=== PATIENT | female | born 1980 | race Caucasian/White ===

== ENCOUNTER 2016-02-26 16:21 | Emergency (ER) | payer OTHER ==
[~2016-02-26] VITALS: Ht 160 cm; Wt 85.5 kg
[~2016-02-26 16:21] MED LIST: AMOXIL875 MG PO; ATARAX,VISTARIL50 MG PO; BACTRIM,SEPT1 TABLET PO; BENTYL10 MG PO; BENZONATATE100 MG PO; BIRTH CONTROL PILLS; BUSPAR10 MG PO; COLACE100 MG PO; COMPAZINE10 MG PR; CYMBALTA20 MG PO; CYMBALTA30 MG PO; DICYCLOMINE HCL20 MG PO; DILAUDID1 MG/ML PO; DOCUSATE SODIU100 MG PO; ENDOCET 5-3251 EACH PO; ESTRACE0.5 MG PO; FLONASE16 G1 NS; Flexeril PO; HYDROXYZINE HCL50 M1 PO; HYDROXYZINE PAM25 MG PO; IBUPROFEN800 MG PO; LAMICTAL100 MG PO; LAMICTAL200 MG PO; LAMOTRIGINE100 MG PO; LEVSIN0.125 MG PO; MAGNESIUM OXID500 MG PO; MONTELUKAST SOD10 MG PO; NAPROSYN500 MG PO; NORCO 5/3251 TABLET PO; Naprosyn PO; PERCOCET 5/31 TABLET PO; PHENERGAN25 MG PR; PREDNISONE20 MG PO; PROAIR HFA8.5 GM IH; PROMETHAZINE HC25 M1 PO; PROZAC20 M1 PO; QUETIAPINE FUMA25 MG PO; TOPAMAX25 MG PO; TOPAMAX50 MG PO; TOPIRAMATE25 MG PO; TORADOL10 MG PO; TRAMADOL HCL50 MG PO; TRAZODONE HCL50 MG PO; TYLENOL WITH C1 EACH PO; XULANE PATCH1 EACH TD; ZANTAC150 MG PO; ZOFRAN ODT4 MG PO; ZOFRAN ODT8 MG PO; ZOFRAN8 MG PO; ZOLOFT100 M1 PO; ZOLOFT100 MG PO
[2016-02-26] MEDS ORDERED: VALIUM5 MG PO (21:02)
[2016-02-26 21:30] VITALS: BP 128/62
== END 2016-02-26 21:32 | disposition home or self-care (01) ==
LOC: EME 16:21
DX: M54.2 Cervicalgia (principal); G89.29 Other chronic pain; M62.838 Other muscle spasm; Z90.710 Acquired absence of both cervix and uterus; Z79.890 Hormone replacement therapy; F17.200 Nicotine dependence, unspecified, uncomplicated
CPT/HCPCS: 99281; 99283; J1170

== ENCOUNTER 2016-03-05 15:20 | Inpatient (IN) | payer OTHER ==
[~2016-03-05] VITALS: Ht 160 cm; Wt 83.5 kg
[~2016-03-05 15:20] MED LIST changes: +VALIUM5 MG PO
[2016-03-05] MEDS ORDERED: ROBAXIN500 MG PO (16:05)
[2016-03-05] MEDS ORDERED: VICODIN 5-3001 EACH PO (16:06)
[2016-03-05] MEDS ORDERED: ONDANSETRON ODT8 MG PO (16:07)
[2016-03-05] MEDS ORDERED: OXYCODONE HCL10 MG PO (16:07)
[2016-03-05 16:53] LABS: HEMATOCRIT 41.9 % (36.0-46.0); MCH 30.5 PG (29.0-34.0); MCHC 34.4 G/DL (30.0-36.0); MCV 88.8 FL (83-99); MEAN PLAT.VOLUME 9.4 uM^3 (9.5-12.4); PLATELET COUNT 253 K/uL (156-360); RBC DIS.WIDTH-CV 12.9 % (11.8-14.6); RBC DIS.WIDTH-SD 41.1 % (39-53); RED BLOOD COUNT 4.72 M/uL (3.80-5.20); WHITE BLOOD COUNT 7.3 K/uL (4.1-10.2)
[2016-03-05 17:05] LABS: CHLORIDE 107 mEq/L (99-109); POTASSIUM 4.1 mEq/L (3.7-5.4); SODIUM 142 mEq/L (136-147)
[2016-03-05 17:07] LABS: GLUCOSE 95 mg/dL (70-99)
[2016-03-05 17:08] LABS: ANION GAP 12 MEQ/L (2-14)
[2016-03-05 17:10] LABS: SERUM ETHYL ALCOHOL < 10 mg/dL
[2016-03-05 17:11] LABS: GFR ESTIMATE (CALCULATED) > 59 mL/min/
[2016-03-05 17:12] LABS: UREA NITROGEN (BUN) 9 mg/dL (9-23)
[2016-03-05 17:40] LABS: QUANTITATIVE HCG < 4.0 MIU/ML
[2016-03-05] MEDS ORDERED: NORCO 5/3251 TABLET PO (18:37)
[2016-03-05] MEDS ORDERED: MULTI VITAMIN1 EACH PO (18:38)
[2016-03-05] MEDS ORDERED: VITAMIN D2000 UNIT PO (18:38)
[2016-03-05] MEDS ORDERED: RANITIDINE HCL300 MG PO (18:39)
[2016-03-05] MEDS ORDERED: MS CONTIN,ORAMO15 M1 PO (18:40)
[2016-03-05 19:29] VITALS: BP 118/71
[2016-03-05 19:35] LABS: AMPHETAMINE NEGATIVE (500 ng/mL); BARBITURATES NEGATIVE (200 ng/mL); BENZODIAZEPINES PRESUMPTIVE POSITIVE (150 ng/mL); COCAINE NEGATIVE (150 ng/mL); INTERNAL CONTROLS VALID? YES; METHADONE NEGATIVE (200 ng/mL); METHAMPHETAMINE NEGATIVE (500 ng/mL); OPIATES (MORPHINE) PRESUMPTIVE POSITIVE (100 ng/mL); OXYCODONE NEGATIVE (100 ng/mL); PHENCYCLIDINE NEGATIVE (25 ng/mL); PROPOXYPHENE NEGATIVE (300 ng/mL); THC CANNABINOIDS NEGATIVE (50 ng/mL); TRICYCLIC ANTIDEPRESSANTS NEGATIVE (300 ng/mL)
[2016-03-05 19:36] LABS: ADD MEDTOX COMMENT Y
[2016-03-05 20:22] LABS: BENZODIAZEPINES, URINE SCREEN POSITIVE (200 ng/mL)
[2016-03-06 07:55] VITALS: BP 101/55
[2016-03-06 15:36] VITALS: BP 124/73
[2016-03-07 07:33] VITALS: BP 107/59
[2016-03-07 15:57] VITALS: BP 123/79
[2016-03-08 07:41] VITALS: BP 84/52
[2016-03-08 16:06] VITALS: BP 135/79
[2016-03-09 07:53] VITALS: BP 103/56
[2016-03-09] MEDS ORDERED: DULOXETINE HCL30 MG PO (09:36)
[2016-03-09] MEDS ORDERED: TOPIRAMATE25 MG PO (09:36)
== END 2016-03-09 14:45 | disposition home or self-care (01) | DRG 885 ==
LOC: EME 15:20 → 1WEST 18:01 → EDOF 18:01 → 1WEST 18:01 → EDOF 18:01 → 1WEST 19:27
DX: F33.9 Major depressive disorder, recurrent, unspecified (principal); F60.9 Personality disorder, unspecified; R45.851 Suicidal ideations; G89.4 Chronic pain syndrome; G47.10 Hypersomnia, unspecified; F41.9 Anxiety disorder, unspecified; K58.9 Irritable bowel syndrome, unspecified; G43.909 Migraine, unspecified, not intractable, without status migrainosus; E66.3 Overweight; Z68.33 Body mass index [BMI] 33.0-33.9, adult
CPT/HCPCS: 80048; 81003; 84702; 84999; 85027; 90839; 97150 GO; 97167 GO; 99281; 99285; G0480

== ENCOUNTER 2016-05-15 22:03 | Observation (INO) | payer OTHER ==
[~2016-05-15] VITALS: Ht 160 cm; Wt 85.4 kg
[~2016-05-15 22:03] MED LIST changes: +DULOXETINE HCL30 MG PO; +MS CONTIN,ORAMO15 M1 PO; +MULTI VITAMIN1 EACH PO; +ONDANSETRON ODT8 MG PO; +OXYCODONE HCL10 MG PO; +RANITIDINE HCL300 MG PO; +ROBAXIN500 MG PO; +VICODIN 5-3001 EACH PO; +VITAMIN D2000 UNIT PO
[2016-05-15 23:35] LABS: HEMATOCRIT 40.7 % (36.0-46.0); MCHC 33.9 G/DL (30.0-36.0); MCV 88.5 FL (83-99); MEAN PLAT.VOLUME 9.3 uM^3 (9.5-12.4); PLATELET COUNT 251 K/uL (156-360); RBC DIS.WIDTH-CV 11.9 % (11.8-14.6); RBC DIS.WIDTH-SD 38.7 % (39-53); WHITE BLOOD COUNT 6.5 K/uL (4.1-10.2)
[2016-05-15 23:48] LABS: CHLORIDE 110 mEq/L (99-109); POTASSIUM 3.9 mEq/L (3.7-5.4); SODIUM 142 mEq/L (136-147)
[2016-05-15 23:51] LABS: GLUCOSE 88 mg/dL (70-99)
[2016-05-15 23:52] LABS: ANION GAP 11 MEQ/L (2-14)
[2016-05-15 23:53] LABS: TOTAL BILIRUBIN 0.3 mg/dL (0.0-1.0)
[2016-05-15 23:54] LABS: ALKALINE PHOSPHATASE 75 IU/L (3-129); GFR ESTIMATE (CALCULATED) > 59 mL/min/; SERUM ETHYL ALCOHOL < 10 mg/dL; TROP-I INTERPRETATION NEGATIVE; TROPONIN-I < 0.01 ng/mL (0.0-0.30)
[2016-05-15 23:56] LABS: UREA NITROGEN (BUN) 7 mg/dL (9-23)
[2016-05-15 23:58] LABS: CREATINE KINASE 51 IU/L (1-294); LIPASE 21 U/L (1.0-51.0); TOTAL CK 51 IU/L (1-294)
[2016-05-16 00:05] LABS: CK-MB 0.6 ng/mL (0.0-4.9); QUANTITATIVE HCG < 4.0 MIU/ML
[2016-05-16] MEDS ORDERED: TOPAMAX100 MG PO (01:01)
[2016-05-16] MEDS ORDERED: FLONASE SENSIM9.9 ML BOTH NARES (01:01)
[2016-05-16] MEDS ORDERED: OXYCODONE HCL10 MG PO (01:02)
[2016-05-16] MEDS ORDERED: MORPHINE SULFAT15 M1 PO (01:02)
[2016-05-16] MEDS ORDERED: CYMBALTA60 MG PO (01:02)
[2016-05-16 01:06] LABS: ADD MIUA? NO; BILIRUBIN NEGATIVE; BLOOD NEGATIVE; COLOR STRAW ((YELLOW)); GLUCOSE (STRIP) NEGATIVE; KETONES NEGATIVE; LEUKOCYTES NEGATIVE; NITRITE NEGATIVE; PROTEIN (STRIP) NEGATIVE; SPECIFIC GRAVITY 1.005 (1.000-1.030); UCUL ADDED? NO; UROBILINOGEN 0.2 MG/DL (0.2-1.0)
[2016-05-16] MEDS ORDERED: [UNRECOGNIZED DRUG - OTHER] PO (01:06)
[2016-05-16 01:14] LABS: AMPHETAMINE NEGATIVE (500 ng/mL); BARBITURATES NEGATIVE (200 ng/mL); BENZODIAZEPINES NEGATIVE (150 ng/mL); COCAINE NEGATIVE (150 ng/mL); INTERNAL CONTROLS VALID? YES; METHADONE NEGATIVE (200 ng/mL); METHAMPHETAMINE NEGATIVE (500 ng/mL); OPIATES (MORPHINE) PRESUMPTIVE POSITIVE (100 ng/mL); OXYCODONE NEGATIVE (100 ng/mL); PHENCYCLIDINE NEGATIVE (25 ng/mL); PROPOXYPHENE NEGATIVE (300 ng/mL); THC CANNABINOIDS NEGATIVE (50 ng/mL); TRICYCLIC ANTIDEPRESSANTS NEGATIVE (300 ng/mL)
[2016-05-16 01:15] LABS: ADD MEDTOX COMMENT Y
[2016-05-16 03:13] VITALS: BP 112/67
[2016-05-16 12:07] VITALS: BP 81/50
[2016-05-16] MEDS ORDERED: LEVETIRACETAM500 MG PO (15:49)
[2016-05-16 16:41] VITALS: BP 102/64
== END 2016-05-16 19:00 | disposition home or self-care (01) ==
LOC: EME → EDBD 22:03 → EME 22:03 → EDOF 05-16 01:46 → 5WEST 05-16 02:51
PROVIDERS: Emergency Medicine
DX: R56.9 Unspecified convulsions (principal); G89.4 Chronic pain syndrome; F31.9 Bipolar disorder, unspecified; F60.9 Personality disorder, unspecified; F17.200 Nicotine dependence, unspecified, uncomplicated
CPT/HCPCS: 70450; 71020; 80053; 81003; 82550; 82553; 83690; 84146; 84484; 84702; 84999; 85027; 93005; 99202; 99281; 99285; G0378; G0480; J1953; J2060; J7030; J7050

== ENCOUNTER 2016-11-23 12:07 | Emergency (ER) | payer OTHER ==
[~2016-11-23] VITALS: Ht 162.6 cm; Wt 77.3 kg
[~2016-11-23 12:07] MED LIST changes: +CYMBALTA60 MG PO; +FLONASE SENSIM9.9 ML BOTH NARES; +LEVETIRACETAM500 MG PO; +MORPHINE SULFAT15 M1 PO; +TOPAMAX100 MG PO; +[UNRECOGNIZED DRUG - OTHER] PO
[2016-11-23 12:52] LABS: BASOPHIL COUNT 0.1 K/uL (0-0.1); EOSINOPHIL (%) 6.6 % (0-5); EOSINOPHIL COUNT 0.6 K/uL (0-0.3); HEMATOCRIT 38.5 % (36.0-46.0); IMMATURE GRANULOCYTE (%) 0.2 % (0.0-0.7); INSTRUMENT ABS NEUTROPHIL CT 5.4 K/uL; LYMPHOCYTE COUNT 2.1 K/uL (1.0-2.8); MCH 29.7 PG (29.0-34.0); MCHC 33.5 G/DL (30.0-36.0); MCV 88.5 FL (83-99); MEAN PLAT.VOLUME 9.6 uM^3 (9.5-12.4); MONOCYTE (%) 4.3 % (3-12); MONOCYTE COUNT 0.4 K/uL (0-0.8); NEUTROPHIL (%) 63.4 % (45-76); NEUTROPHIL COUNT 5.4 K/uL (1.8-6.4); PLATELET COUNT 230 K/uL (156-360); RBC DIS.WIDTH-CV 12.2 % (11.8-14.6); RBC DIS.WIDTH-SD 39.6 % (39-53); RED BLOOD COUNT 4.35 M/uL (3.80-5.20); WHITE BLOOD COUNT 8.5 K/uL (4.1-10.2)
[2016-11-23 13:06] LABS: CHLORIDE 112 mEq/L (99-109); POTASSIUM 3.6 mEq/L (3.7-5.4); SODIUM 145 mEq/L (136-147)
[2016-11-23 13:08] LABS: GLUCOSE 93 mg/dL (70-99)
[2016-11-23 13:09] LABS: ANION GAP 11 MEQ/L (2-14)
[2016-11-23 13:12] LABS: GFR ESTIMATE (CALCULATED) > 59 mL/min/; UREA NITROGEN (BUN) 8 mg/dL (9-23)
[2016-11-23 15:00] VITALS: BP 101/78
== END 2016-11-23 15:59 | disposition home or self-care (01) ==
LOC: EME 12:07
PROVIDERS: Emergency Medicine
DX: G40.909 Epilepsy, unspecified, not intractable, without status epilepticus (principal); R05 Cough; J45.909 Unspecified asthma, uncomplicated; F17.200 Nicotine dependence, unspecified, uncomplicated
CPT/HCPCS: 80048; 85025

== ENCOUNTER 2016-11-27 12:55 | Observation (INO) | payer OTHER ==
[~2016-11-27] VITALS: Ht 162.6 cm; Wt 73.6 kg
[2016-11-27 14:31] LABS: BASOPHIL COUNT 0.1 K/uL (0-0.1); EOSINOPHIL (%) 10.6 % (0-5); EOSINOPHIL COUNT 0.5 K/uL (0-0.3); HEMATOCRIT 39.9 % (36.0-46.0); IMMATURE GRANULOCYTE (%) 0.2 % (0.0-0.7); INSTRUMENT ABS NEUTROPHIL CT 2.5 K/uL; LYMPHOCYTE COUNT 1.5 K/uL (1.0-2.8); MCH 29.8 PG (29.0-34.0); MCHC 33.3 G/DL (30.0-36.0); MCV 89.3 FL (83-99); MEAN PLAT.VOLUME 9.7 uM^3 (9.5-12.4); MONOCYTE COUNT 0.2 K/uL (0-0.8); NEUTROPHIL (%) 52.8 % (45-76); NEUTROPHIL COUNT 2.5 K/uL (1.8-6.4); PLATELET COUNT 216 K/uL (156-360); RBC DIS.WIDTH-SD 38.9 % (39-53); RED BLOOD COUNT 4.47 M/uL (3.80-5.20); WHITE BLOOD COUNT 4.8 K/uL (4.1-10.2)
[2016-11-27 14:40] LABS: CHLORIDE 113 mEq/L (99-109); POTASSIUM 4.1 mEq/L (3.7-5.4); SODIUM 142 mEq/L (136-147)
[2016-11-27 14:42] LABS: GLUCOSE 91 mg/dL (70-99)
[2016-11-27 14:44] LABS: ANION GAP 6 MEQ/L (2-14)
[2016-11-27 14:46] LABS: GFR ESTIMATE (CALCULATED) > 59 mL/min/
[2016-11-27 14:47] LABS: UREA NITROGEN (BUN) 8 mg/dL (9-23)
[2016-11-27] MEDS ORDERED: KENALOG,ARISTOC80 GM TP (16:55)
[2016-11-27] MEDS ORDERED: OXCARBAZEPINE150 MG PO (16:58)
[2016-11-27] MEDS ORDERED: MIRALAX255 GM PO (17:01)
[2016-11-27 17:44] LABS: CREATINE KINASE 64 IU/L (1-294); TOTAL CK 64 IU/L (1-294)
[2016-11-27 17:50] LABS: CK-MB 0.7 ng/mL (0.0-4.9)
[2016-11-27 18:15] VITALS: BP 106/62
[2016-11-27 20:32] VITALS: BP 101/58
[2016-11-27 23:28] VITALS: BP 91/57
[2016-11-28 04:14] VITALS: BP 84/52; BP 95/50
[2016-11-28 06:07] LABS: ANION GAP 8 MEQ/L (2-14); CHLORIDE 113 MEQ/L (99-109); GFR ESTIMATE (CALCULATED) > 59 mL/min/; GLUCOSE 89 mg/dL (70-99); POTASSIUM 3.9 MEQ/L (3.7-5.4); SAMPLE HEMOLYSIS CHECK 0; SAMPLE ICTERIC CHECK 0; SAMPLE LIPEMIA CHECK 0; SODIUM 143 MEQ/L (136-147); UREA NITROGEN (BUN) 8 mg/dL (9-23)
[2016-11-28 09:36] VITALS: BP 112/70
[2016-11-28 11:53] VITALS: BP 121/70
[2016-11-28 16:45] VITALS: BP 117/78
[2016-11-28 19:21] VITALS: BP 124/80
[2016-11-28 23:47] VITALS: BP 102/59
[2016-11-29 03:30] VITALS: BP 90/54
[2016-11-29 05:54] LABS: BASOPHIL COUNT 0.1 K/uL (0-0.1); EOSINOPHIL (%) 9.1 % (0-5); EOSINOPHIL COUNT 0.5 K/uL (0-0.3); HEMATOCRIT 38.1 % (36.0-46.0); IMMATURE GRANULOCYTE (%) 0.2 % (0.0-0.7); INSTRUMENT ABS NEUTROPHIL CT 2.5 K/uL; LYMPHOCYTE COUNT 2.3 K/uL (1.0-2.8); MCH 29.8 PG (29.0-34.0); MCHC 33.3 G/DL (30.0-36.0); MCV 89.4 FL (83-99); MEAN PLAT.VOLUME 9.6 uM^3 (9.5-12.4); MONOCYTE (%) 5.3 % (3-12); MONOCYTE COUNT 0.3 K/uL (0-0.8); NEUTROPHIL (%) 42.8 % (45-76); NEUTROPHIL COUNT 2.5 K/uL (1.8-6.4); PLATELET COUNT 220 K/uL (156-360); RBC DIS.WIDTH-CV 11.9 % (11.8-14.6); RBC DIS.WIDTH-SD 38.7 % (39-53); RED BLOOD COUNT 4.26 M/uL (3.80-5.20); WHITE BLOOD COUNT 5.7 K/uL (4.1-10.2)
[2016-11-29 06:17] LABS: ANION GAP 9 MEQ/L (2-14); CHLORIDE 110 MEQ/L (99-109); GFR ESTIMATE (CALCULATED) > 59 mL/min/; GLUCOSE 79 mg/dL (70-99); POTASSIUM 3.9 MEQ/L (3.7-5.4); SAMPLE HEMOLYSIS CHECK 0; SAMPLE ICTERIC CHECK 0; SAMPLE LIPEMIA CHECK 0; SODIUM 142 MEQ/L (136-147); UREA NITROGEN (BUN) 8 mg/dL (9-23)
[2016-11-29 09:45] VITALS: BP 88/54
[2016-11-29 12:00] VITALS: BP 102/52
[2016-11-29] MEDS ORDERED: NICOTINE PATCH1 EAC2 TD (12:37)
== END 2016-11-29 14:48 | disposition home or self-care (01) ==
LOC: EME 12:55 → EDOF 15:56 → ENRESERV 16:08 → 5WEST 18:05
PROVIDERS: Emergency Medicine; Internal Medicine
DX: G40.89 Other seizures (principal); M50.122 Cervical disc disorder at C5-C6 level with radiculopathy; M79.604 Pain in right leg; M79.605 Pain in left leg; M62.838 Other muscle spasm; F32.9 Major depressive disorder, single episode, unspecified; F44.9 Dissociative and conversion disorder, unspecified; R26.89 Other abnormalities of gait and mobility; F17.210 Nicotine dependence, cigarettes, uncomplicated; J45.909 Unspecified asthma, uncomplicated; F43.10 Post-traumatic stress disorder, unspecified; G89.4 Chronic pain syndrome; G43.909 Migraine, unspecified, not intractable, without status migrainosus; K58.9 Irritable bowel syndrome, unspecified; Z90.710 Acquired absence of both cervix and uterus; Z90.49 Acquired absence of other specified parts of digestive tract; Z88.8 Allergy status to other drugs, medicaments and biological substances
CPT/HCPCS: 70450; 71020; 72141; 80048; 82550; 82553; 85025; 99281; 99285; G0378; G8978 GP CJ; G8979 GP CI; G8980 CJ; J1650; J2060; J2405; J7050

== ENCOUNTER 2016-12-02 09:49 | Emergency (ER) | payer OTHER ==
[~2016-12-02] VITALS: Ht 160 cm; Wt 77.2 kg
[~2016-12-02 09:49] MED LIST changes: +KENALOG,ARISTOC80 GM TP; +MIRALAX255 GM PO; +NICOTINE PATCH1 EAC2 TD; +OXCARBAZEPINE150 MG PO
[2016-12-02 10:46] LABS: HEMATOCRIT 40.9 % (36.0-46.0); MCH 30.5 PG (29.0-34.0); MCHC 33.7 G/DL (30.0-36.0); MCV 90.3 FL (83-99); MEAN PLAT.VOLUME 9.6 uM^3 (9.5-12.4); PLATELET COUNT 245 K/uL (156-360); RBC DIS.WIDTH-CV 12.1 % (11.8-14.6); RBC DIS.WIDTH-SD 39.9 % (39-53); RED BLOOD COUNT 4.53 M/uL (3.80-5.20); WHITE BLOOD COUNT 5.3 K/uL (4.1-10.2)
[2016-12-02 10:56] LABS: CHLORIDE 110 mEq/L (99-109); POTASSIUM 4.1 mEq/L (3.7-5.4); SODIUM 145 mEq/L (136-147)
[2016-12-02 10:57] LABS: GLUCOSE 86 mg/dL (70-99)
[2016-12-02 10:59] LABS: ANION GAP 8 MEQ/L (2-14)
[2016-12-02 11:01] LABS: GFR ESTIMATE (CALCULATED) > 59 mL/min/
[2016-12-02 11:02] LABS: UREA NITROGEN (BUN) 6 mg/dL (9-23)
[2016-12-02 11:12] LABS: QUANTITATIVE HCG < 4.0 MIU/ML
[2016-12-02 11:31] LABS: TOTAL BILIRUBIN 0.3 mg/dL (0.0-1.0)
[2016-12-02 11:32] LABS: ALKALINE PHOSPHATASE 91 IU/L (3-129)
[2016-12-02 11:34] LABS: DIRECT BILIRUBIN 0.1 mg/dL (0.0-0.3)
[2016-12-02 11:35] LABS: LIPASE 17 U/L (1.0-51.0)
[2016-12-02 11:37] LABS: TROP-I INTERPRETATION NEGATIVE; TROPONIN-I < 0.01 ng/mL (0.0-0.30)
[2016-12-02 15:27] LABS: ADD MIUA? YES; BILIRUBIN NEGATIVE; BLOOD NEGATIVE; COLOR YELLOW ((YELLOW)); GLUCOSE (STRIP) NEGATIVE; KETONES NEGATIVE; LEUKOCYTES NEGATIVE; NITRITE NEGATIVE; PROTEIN (STRIP) NEGATIVE; SPECIFIC GRAVITY 1.012 (1.000-1.030)
[2016-12-02 15:33] LABS: BACTERIA RARE /HPF; EPITHELIAL CELLS 1+ /HPF; HYALINE CASTS 0-5 /LPF; MUCUS 1+ /LPF; RED BLOOD CELLS 0-5 /HPF (0-5); WHITE BLOOD CELLS 0-5 /HPF (0-5)
[2016-12-02 16:27] VITALS: BP 105/66
== END 2016-12-02 16:51 | disposition home or self-care (01) ==
LOC: EME 09:49
PROVIDERS: Emergency Medicine; Physician Assistant
DX: R53.1 Weakness (principal); I95.9 Hypotension, unspecified; R20.0 Anesthesia of skin; R10.9 Unspecified abdominal pain; R07.9 Chest pain, unspecified; R68.84 Jaw pain; R05 Cough; G40.909 Epilepsy, unspecified, not intractable, without status epilepticus; J45.909 Unspecified asthma, uncomplicated; Z90.49 Acquired absence of other specified parts of digestive tract; Z90.710 Acquired absence of both cervix and uterus; F17.200 Nicotine dependence, unspecified, uncomplicated
CPT/HCPCS: 71010; 80048; 80076; 81003; 83690; 84484; 84702; 85027; 93005; 94640; 99281; 99285; J1885; J7030

== ENCOUNTER 2017-05-10 13:12 | Emergency (ER) | payer OTHER ==
[~2017-05-10] VITALS: Ht 172.7 cm; Wt 68.2 kg
[2017-05-10 14:15] LABS: HEMATOCRIT 38.5 % (36.0-46.0); HEMOGLOBIN 13.3 G/DL (11.9-15.5); MCHC 34.5 G/DL (30.0-36.0); MCV 89.7 FL (83-99); PLATELET COUNT 216 K/uL (156-360); RBC DIS.WIDTH-CV 12.5 % (11.8-14.6); RBC DIS.WIDTH-SD 41.1 % (39-53); RED BLOOD COUNT 4.29 M/uL (3.80-5.20)
[2017-05-10 14:25] LABS: ALBUMIN 3.6 g/dL (3.2-4.8); CHLORIDE 110 mEq/L (99-109); POTASSIUM 3.9 mEq/L (3.7-5.4); SODIUM 140 mEq/L (136-147)
[2017-05-10 14:28] LABS: GLUCOSE 90 mg/dL (70-99); TOTAL PROTEIN 5.5 g/dL (6.4-8.3)
[2017-05-10 14:30] LABS: TOTAL BILIRUBIN 0.3 mg/dL (0.0-1.0)
[2017-05-10 14:31] LABS: ALKALINE PHOSPHATASE 93 IU/L (3-129); CREATININE 0.7 mg/dL (0.6-1.3); GFR ESTIMATE (CALCULATED) > 59 mL/min/; SERUM ETHYL ALCOHOL < 10 mg/dL
[2017-05-10 14:33] LABS: AST (GOT) 20 IU/L (2-34); UREA NITROGEN (BUN) 11 mg/dL (9-23)
[2017-05-10 14:34] LABS: ALT (GPT) 27 IU/L (3-49)
[2017-05-10 14:40] LABS: QUANTITATIVE HCG < 4.0 MIU/ML
[2017-05-10 14:55] LABS: BILIRUBIN NEGATIVE; BLOOD NEGATIVE; COLOR YELLOW ((YELLOW)); GLUCOSE (STRIP) NEGATIVE; KETONES NEGATIVE; LEUKOCYTES NEGATIVE; NITRITE NEGATIVE; PROTEIN (STRIP) NEGATIVE; SPECIFIC GRAVITY 1.012 (1.000-1.030); UROBILINOGEN 0.2 MG/DL (0.2-1.0)
[2017-05-10 14:56] LABS: APPEARANCE CLEAR ((CLEAR))
[2017-05-10 15:00] VITALS: BP 122/71
[2017-05-10 15:30] LABS: BENZODIAZEPINES, URINE SCREEN Negative (200 ng/mL)
== END 2017-05-10 15:49 | disposition left against medical advice (07) ==
LOC: EME 13:12
PROVIDERS: Emergency Medicine
DX: R56.9 Unspecified convulsions (principal); Z53.21 Procedure and treatment not carried out due to patient leaving prior to being seen by health care provider
CPT/HCPCS: 80053; 80306 90; 81003; 84702; 85027; 99281; 99283; G0480

== ENCOUNTER 2017-07-28 10:45 | Inpatient (IN) | payer OTHER ==
[~2017-07-28] VITALS: Ht 162.6 cm; Wt 69.9 kg
[2017-07-28 11:28] LABS: APPEARANCE SL.HAZY ((CLEAR)); BILIRUBIN NEGATIVE; BLOOD NEGATIVE; COLOR YELLOW ((YELLOW)); GLUCOSE (STRIP) NEGATIVE; KETONES NEGATIVE; LEUKOCYTES TRACE; NITRITE NEGATIVE; PROTEIN (STRIP) NEGATIVE; SPECIFIC GRAVITY 1.016 (1.000-1.030)
[2017-07-28 11:36] LABS: BASOPHIL (%) 1.1 % (0-1); BASOPHIL COUNT 0.1 K/uL (0-0.1); EOSINOPHIL (%) 3.8 % (0-5); EOSINOPHIL COUNT 0.2 K/uL (0-0.3); HEMATOCRIT 39.6 % (36.0-46.0); HEMOGLOBIN 13.5 G/DL (11.9-15.5); IMMATURE GRANULOCYTE (%) 0.4 % (0.0-0.7); LYMPHOCYTE (%) 23.8 % (15-42); LYMPHOCYTE COUNT 1.3 K/uL (1.0-2.8); MCHC 34.1 G/DL (30.0-36.0); MONOCYTE (%) 5.4 % (3-12); MONOCYTE COUNT 0.3 K/uL (0-0.8); NEUTROPHIL (%) 65.5 % (45-76); NEUTROPHIL COUNT 3.6 K/uL (1.8-6.4); PLATELET COUNT 232 K/uL (156-360); RBC DIS.WIDTH-CV 12.4 % (11.8-14.6); RBC DIS.WIDTH-SD 40.8 % (39-53); RED BLOOD COUNT 4.35 M/uL (3.80-5.20); WHITE BLOOD COUNT 5.5 K/uL (4.1-10.2)
[2017-07-28 11:40] LABS: AMPHETAMINE NEGATIVE (500 ng/mL); BARBITURATES NEGATIVE (200 ng/mL); BENZODIAZEPINES NEGATIVE (150 ng/mL); BUPRENORPHINE NEGATIVE (10 ng/mL); COCAINE NEGATIVE (150 ng/mL); METHADONE NEGATIVE (200 ng/mL); METHAMPHETAMINE NEGATIVE (500 ng/mL); OPIATES (MORPHINE) NEGATIVE (100 ng/mL); OXYCODONE PRESUMPTIVE POSITIVE (100 ng/mL); PHENCYCLIDINE NEGATIVE (25 ng/mL); PROPOXYPHENE NEGATIVE (300 ng/mL); THC CANNABINOIDS PRESUMPTIVE POSITIVE (50 ng/mL); TRICYCLIC ANTIDEPRESSANTS NEGATIVE (300 ng/mL)
[2017-07-28 11:43] LABS: BACTERIA NONE SEEN /HPF; EPITHELIAL CELLS 1+ /HPF; MUCUS 1+ /LPF; WHITE BLOOD CELLS 0-5 /HPF (0-5)
[2017-07-28 11:46] LABS: CHLORIDE 111 mEq/L (99-109); POTASSIUM 3.9 mEq/L (3.7-5.4); SODIUM 143 mEq/L (136-147)
[2017-07-28 11:48] LABS: GLUCOSE 76 mg/dL (70-99)
[2017-07-28 11:51] LABS: CREATININE 0.8 mg/dL (0.6-1.3); GFR ESTIMATE (CALCULATED) > 59 mL/min/; SERUM ETHYL ALCOHOL < 10 mg/dL
[2017-07-28 11:52] LABS: UREA NITROGEN (BUN) 12 mg/dL (9-23)
[2017-07-28] MEDS ORDERED: TRAZODONE HCL50 MG PO (13:36)
[2017-07-28] MEDS ORDERED: ATARAX,VISTARIL50 MG PO (13:36)
[2017-07-28] MEDS ORDERED: OXYCODONE HCL10 MG PO (13:37)
[2017-07-28] MEDS ORDERED: ONCE DAILY1 EACH PO (13:38)
[2017-07-28] MEDS ORDERED: ALBUTEROL2.5 MG/3 M IH (13:39)
[2017-07-28] MEDS ORDERED: VENTOLIN HFA18 GM IH (13:39)
[2017-07-28] MEDS ORDERED: VITAMIN D3400 UNIT PO (13:40)
[2017-07-28] MEDS ORDERED: DOXYCYCLINE MO100 M1 PO (13:40)
[2017-07-28] MEDS ORDERED: CETIRIZINE HCL10 M2 PO (13:40)
[2017-07-28] MEDS ORDERED: TOPIRAMATE200 MG PO (13:41)
[2017-07-28] MEDS ORDERED: DULOXETINE HCL60 MG PO (13:41)
[2017-07-28] MEDS ORDERED: MAG-OXIDE400 MG PO (13:42)
[2017-07-28 16:13] VITALS: BP 113/69
[2017-07-29 09:39] VITALS: BP 130/63
[2017-07-29 16:37] VITALS: BP 103/59
[2017-07-30 07:56] VITALS: BP 100/62
[2017-07-30 16:10] VITALS: BP 127/90
[2017-07-31 07:23] VITALS: BP 92/52
[2017-07-31 16:47] VITALS: BP 127/77
[2017-08-01 08:27] VITALS: BP 90/53
[2017-08-01 16:34] VITALS: BP 122/86
[2017-08-02 07:52] VITALS: BP 90/52
[2017-08-02 16:36] VITALS: BP 125/81
[2017-08-03 08:04] VITALS: BP 118/76
[2017-08-03] MEDS ORDERED: ARIPIPRAZOLE10 MG PO (09:36)
== END 2017-08-03 12:04 | disposition home or self-care (01) | DRG 885 ==
LOC: EME 10:45 → EDOF 12:51 → ENRESERV 13:58 → 1WEST 14:40
PROVIDERS: Emergency Medicine
DX: F33.1 Major depressive disorder, recurrent, moderate (principal); F43.10 Post-traumatic stress disorder, unspecified; F12.90 Cannabis use, unspecified, uncomplicated; F60.9 Personality disorder, unspecified; R45.851 Suicidal ideations; F44.5 Conversion disorder with seizures or convulsions; G89.29 Other chronic pain; M54.5 Low back pain; J45.909 Unspecified asthma, uncomplicated; F17.200 Nicotine dependence, unspecified, uncomplicated; Z86.73 Personal history of transient ischemic attack (TIA), and cerebral infarction without residual deficits; Z91.5 Personal history of self-harm
CPT/HCPCS: 80048; 81003; 84999; 85025; 90839; 97150 GO; 97166 GO; 99202; 99281; 99285; G0480; Q0177